=== PATIENT | female | born 2000 | race Caucasian/White ===

== ENCOUNTER 2021-05-22 16:41 | Emergency (ER) | payer OTHER ==
[2021-05-22 16:59] VITALS: BP 133/99; PULSE 66; BMI 21.9
[2021-05-22] MEDS ORDERED: ONDANSETRON *ODT* 4 MG TABLET SL ONE (17:47)
[2021-05-22] MEDS ORDERED: ONDANSETRON *ODT* 4 MG TABLET ONE (18:03)
== END 2021-05-22 18:43 | disposition home or self-care (01) ==
LOC: FER 16:41
DX: U07.1 COVID-19 (principal)
CPT/HCPCS: 99283-25; Q0162